=== PATIENT | male | born 1965 | race African-American/Black ===

== ENCOUNTER 2019-11-15 12:11 | Emergency (ER) | payer BC ==
--- NOTE | 2019-11-15 12:31 | ER Document Report ---
ED Medical Screen (RME) - General Chief Complaint: Eye Problem Stated Complaint: EYE PAIN Time Seen by Provider: 11/15/19 12:21 Mode of Arrival: Ambulatory Information source: Patient Notes: Pt presents with c/o of left eye pain that started around noon yesterday. Patient then developed headache pain behind the left eye. Patient denies any change in vision although does feel as though something may be in the eye. Patient recently had bariatric surgery 6 days ago and is currently taking Lovenox. Patient was sent from the urgent care office for concern about possible retro-bulbar bleeding I have greeted and performed a rapid initial assessment of this patient. A comprehensive ED assessment and evaluation of the patient, analysis of test results and completion of the medical decision making process will be conducted by additional ED providers. TRAVEL OUTSIDE OF THE [place] IN LAST 30 DAYS: No - Related Data Allergies/Adverse Reactions: No Known Allergies Allergy (Verified 11/15/19 12:19) Home Medications: lovenox Past Medical History - Social History Chew tobacco use (# tins/day): No Frequency of alcohol use: None Drug Abuse: None Physical Exam - Vital signs Vitals: Temp Pulse Resp BP Pulse Ox 98.1 F 89 16 154/93 H 97 11/15/19 12:20 11/15/19 12:20 11/15/19 12:20 11/15/19 12:20 11/15/19 12:20 - General General appearance: Alert Notes: Left eye with ophthalmoplegia, sclera injected, tenderness to the left eye Course - Vital Signs Vital signs: Temp Pulse Resp BP Pulse Ox 98.1 F 89 16 154/93 H 97 11/15/19 12:20 11/15/19 12:20 11/15/19 12:20 11/15/19 12:20 11/15/19 12:20
--- NOTE | 2019-11-15 13:08 | RADIOLOGY REPORT (SQ) ---
EXAM DESCRIPTION: CT HEAD WITHOUT COMPLETED DATE/TIME: 11/15/2019 12:53 pm REASON FOR STUDY: RADER COMPARISON: None. TECHNIQUE: Axial images acquired through the brain without intravenous contrast. Images reviewed wi th bone, brain and subdural windows. Images stored on PACS. All CT scanners at this facility use dose modulation, iterative reconstruction, and/or weight based d osing when appropriate to reduce radiation dose to as low as reasonably achievable (ALARA). [facility]: Dose Right [facility]: CareDose [facility]: Dose Right [facility]: Teradose 4D [facility]: Smart MusicAll RADIATION DOSE: CT Rad equipment meets quality standard of care and radiation dose reduction techniq ues were employed. CTDIvol: 53.2 mGy. DLP: 1044 mGy-cm. mGy. LIMITATIONS: None. FINDINGS: VENTRICLES: Normal size and contour. CEREBRUM: No masses. No hemorrhage. No midline shift. No evidence for acute infarction. Normal gra y/white matter differentiation. No areas of low density in the white matter. CEREBELLUM: No masses. No hemorrhage. No alteration of density. No evidence for acute infarction. EXTRAAXIAL SPACES: No fluid collections. No masses. ORBITS AND GLOBE: No intra- or extraconal masses. Normal contour of globe without masses. CALVARIUM: No fracture. PARANASAL SINUSES: No fluid or mucosal thickening. SOFT TISSUES: No mass or hematoma. OTHER: No other significant finding. IMPRESSION: NORMAL BRAIN CT WITHOUT CONTRAST. EVIDENCE OF ACUTE STROKE: NO. COMMENT: Quality ID # [id number]: Final reports with documentation of one or more dose reduction techniques (e.g., Automated exposure control, adjustment of the mA and/or kV according to patient size, use of iterative reconstruction technique) TECHNICAL DOCUMENTATION: JOB ID: [id number] [employer]- All Rights Reserved Reading location - IP/workstation name: [email or web address]
[2019-11-15] MEDS ORDERED: OXYCODONE-ACETAMINOPHEN 5-325 MG TABLET PO ONE (14:46)
--- NOTE | 2019-11-15 14:50 | ER Document Report ---
ED Eye Complaint - General Chief Complaint: Eye Problem Stated Complaint: EYE PAIN Time Seen by Provider: 11/15/19 12:21 Primary Care Provider: JOEL CACERES PA-C [Primary Care Provider] - Follow up as needed Mode of Arrival: Ambulatory Information source: Patient, Relative TRAVEL OUTSIDE OF THE [place] IN LAST 30 DAYS: No - HPI Onset: Other - 3 days ago Eye location: Left Occurred at: Home Quality of pain: Achy, Other - Patient complains of gritty sensation and my and dull discomfort over left forehead area extending up to the vertex scalp area Severity: Moderate Pain Level: 3 Exposure: Other - No trauma or foreign exposure reported Contact lenses worn: No Associated symptoms: Burning, Pain, Foreign body sensation. denies: Photophobia, Blurred vision - 1 second is finished documenting this right, Double vision, Decreased vision, Loss of vision Notes: This gentleman had a gastric bypass procedure done at [facility] last week. They have him on Lovenox postoperatively for DVT prophylaxis. He was seen earlier today at urgent care no concern about possibility of a retrobulbar hematoma because of Lovenox and sent him over here. - Related Data Allergies/Adverse Reactions: No Known Allergies Allergy (Verified 11/15/19 12:19) Home Medications: lovenox Past Medical History - General Information source: Patient - Social History Smoking Status: Never Smoker Chew tobacco use (# tins/day): No Frequency of alcohol use: None Drug Abuse: None Family History: Reviewed & Not Pertinent Patient has suicidal ideation: No Patient has homicidal ideation: No Musculoskeletal Medical History: Reports Hx Arthritis Past Surgical History: Reports: Hx Abdominal Surgery - gastric bypass/hernia repair, Hx Cholecystectomy Review of Systems - Review of Systems Notes: Constitutional: Negative for fever. HENT: Negative for sore throat. Eyes: As per HPI. Cardiovascular: Negative for chest pain. Respiratory: Negative for shortness of breath. Gastrointestinal: Negative for abdominal pain, vomiting or diarrhea. Genitourinary: Negative for dysuria. Musculoskeletal: Negative for back pain. Skin: Negative for rash. Neurological: Negative for headaches, weakness or numbness. 10 point ROS negative except as marked above and in HPI. Physical Exam - Vital signs Vitals: Temp Pulse Resp BP Pulse Ox 98.1 F 89 16 154/93 H 97 11/15/19 12:20 11/15/19 12:20 11/15/19 12:20 11/15/19 12:20 11/15/19 12:20 - Notes Notes: Very obese male appearing approximately stated age who appears mildly uncomfortable. - HEENT Eyes: Other - Conjunctival injection noted on the left. No drainage or discharge. No foreign body evident on lid eversion. No abrasion seen on fluorescein staining. Pupils are small equal and reactive to light. There is no clouding of the cornea. Kade-Pen IOP on the left is 20. Media clear. Visual acuity with glasses is normal bilaterally. Visual acuity- Right eye: 20/25 Visual acuity- Left eye: 20/20 Visual acuity- Both eyes: 20/20 Corrective lenses worn: No - Respiratory Respiratory status: No respiratory distress Breath sounds: Normal - Cardiovascular Rhythm: Regular Murmur: No Course - Re-evaluation Re-evalutation: 11/15/19 14:54 Visual acuity is normal. Tonometry of the left eye shows pressure consistently of 20. Findings on slit lamp are consistent with punctate keratitis. There are no vesicles or dendrites visualized and there is no evidence of foreign body ulceration or abrasion. I am going to treat him with analgesic and steroid drops and have him follow-up with ophthalmology within the next 24 hours. 11/15/19 15:05 - Vital Signs Vital signs: Temp Pulse Resp BP Pulse Ox 98.1 F 89 16 154/93 H 97 11/15/19 12:20 11/15/19 12:20 11/15/19 12:20 11/15/19 12:20 11/15/19 12:20 Procedures - Eye Procedure Left Alcaine Drops Administered: Yes Fluorescein applied: Left Slit lamp used: Yes Notes: 11/15/19 15:02 Findings consistent with punctate keratitis. No dendrites present. No abrasions. No ulcerations. 11/15/19 15:05 Discharge - Discharge Clinical Impression: Superficial punctate keratitis of left eye Condition: Stable Disposition: HOME, SELF-CARE Instructions: Antibiotic Therapy ([facility]) Additional Instructions: Return here as needed for new or worsening symptoms: Pain that is worsening or unimproved Uncontrolled vomiting High fever or shaking chills Overall worsening See referral frit maker tomorrow. Avoid direct exposure to sunlight and wear dark glasses. Take your previously prescribed pain medicines. Use drops as directed. Prescriptions: Matthew/Polymyx B Sulf/Dexameth [Maxitrol Oph Susp 5 ml] 2 drop OP TID 3 Days #1 bottle Referrals: JOEL CACERES PA-C [Primary Care Provider] - Follow up as needed KELLI MAGALLON MD [ACTIVE STAFF] - Follow up as needed
[2019-11-15 15:40] VITALS: BP 148/85
== END 2019-11-15 15:30 | disposition home or self-care (01) ==
LOC: ER 12:11
DX: H16.142 Punctate keratitis, left eye (principal); Z98.84 Bariatric surgery status
CPT/HCPCS: 70450; 99283